=== PATIENT | male | born 1950 | race African-American/Black ===

== ENCOUNTER → 2016-11-02 | Outpatient (CLI) | payer MEDICARE, OTHER ==
[~2016-11-02] MED LIST: DIAZEPAM PO; LORTAB 10/500 T1 TAB PO; VICODIN 5/500 T1 TAB PO
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
== END | disposition home or self-care (01) ==
LOC: CRAD 12:26
DX: N20.0 Calculus of kidney (principal); Z96.0 Presence of urogenital implants
CPT/HCPCS: 74000

== ENCOUNTER 2016-12-07 01:57 | Emergency (ER) | payer OTHER, MEDICARE ==
[~2016-12-07] VITALS: Ht 188 cm; Wt 95.2 kg
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
== END 2016-12-07 03:57 | disposition home or self-care (01) ==
LOC: CED 01:57
DX: S13.4XXA Sprain of ligaments of cervical spine, initial encounter (principal); S33.5XXA Sprain of ligaments of lumbar spine, initial encounter; I10 Essential (primary) hypertension; V89.0XXA Person injured in unspecified motor-vehicle accident, nontraffic, initial encounter; Y92.410 Unspecified street and highway as the place of occurrence of the external cause
CPT/HCPCS: 72100; 72125; 99284